=== PATIENT | male | born 1960 | race Caucasian/White ===

== ENCOUNTER 2021-01-26 10:24 | Emergency (ER) | payer MEDICAID ==
[~2021-01-26] VITALS: Ht 180 cm; Wt 131.0 kg
[~2021-01-26 10:24] MED LIST: ACHYD1T PO; ALLO300T2 PO; ASP81CT PO; BUPR-45 PO; BUPR300T43 PO; CETI10TA20 PO; CYAN100053 IJ; FLUT16SP22 NS; FURO40TA PO; GABA-486 PO; HYDR-3816 PO; MELO-195 PO; METO-333 PO; NITR-33 PO; NITR0.4T12 SL; SIMV40TA4 PO
[2021-01-26] MEDS ORDERED: KETOROLAC 30 MG/ML VIAL IVP ONE (10:30)
[2021-01-26] MEDS ORDERED: NS IV 1000 ML 1,000 ML IV ONE (10:30)
--- NOTE | 2021-01-26 10:31 | ED Abdominal Pain ---
General Stated Complaint: KIDNEY PAIN,CT SCAN Source of Information: Patient Exam Limitations: No Limitations History of Present Illness Date Seen by Provider: January 26, 2021 Time Seen by Provider: 10:30 Initial Comments This is a well appearing 60 yo male who presented to the ER with c/o right flank pain that started around 2200 last night. States pain progressively worsened through the morning and at 0330 pain was significantly worse and rated 10/10. States he took his home Hydrocodone 7.5/325mg tab that he takes for his LBP and applied lidocaine cream to his right flank region. Reports this provided mild relief. However, this afternoon his pain progressively worsened and he sought ED evaluation. Reported some nausea associated with pain has no emesis at this time. No fever, chills, cough, shortness of breath, chest pain, vomiting, abdominal pain, or difficulty urinating. Allergies and Home Medications Allergies Coded Allergies: No Known Drug Allergies (Unverified , 09/12/12) Home Medications Allopurinol 300 Mg Tablet, 300 MG PO DAILY, (Reported) Bupropion HCl 300 Mg Tab.er.24h, 300 MG PO DAILY, (Reported) Cetirizine HCl 10 Mg Tablet, 10 MG PO DAILY, (Reported) Cyanocobalamin 1,000 Mcg/Ml Vial, 5,000 MCG IJ MONTHLY, (Reported) Fluticasone Propionate 16 Gm Naspr, 2 SPRAYS NS DAILY, (Reported) Furosemide 40 Mg Tablet, 40 MG PO DAILY, (Reported) Gabapentin 100 Mg Capsule, 100 MG PO TID, (Reported) Hydrocodone Bit/Acetaminophen 1 Tab Tablet, 1 TAB PO Q8H PRN for PAIN, (Reported) Hydrocodone Bit/Acetaminophen 1 Tab Tablet, 1-2 TAB PO Q4H Prescribed by: HOWIE PETERSON on 12/23/14908 Meloxicam 15 Mg Tablet, 15 MG PO DAILY, (Reported) Metoprolol Tartrate 25 Mg Tablet, 25 MG PO BID, (Reported) Nitrofurantoin Macrocrystals 100 Mg Capsule, 1 EACH PO BID Prescribed by: HOWIE PETERSON on 12/23/14908 Simvastatin 40 Mg Tablet, 40 MG PO HS, (Reported) Patient Home Medication List Home Medication List Reviewed: Yes Review of Systems Review of Systems Constitutional: no symptoms reported EENTM: No Symptoms Reported Respiratory: No Symptoms Reported Cardiovascular: No Symptoms Reported Gastrointestinal: See HPI Genitourinary: No Symptoms Reported Musculoskeletal: see HPI Skin: no symptoms reported Psychiatric/Neurological: No Symptoms Reported Endocrine: No Symptoms Reported Hematologic/Lymphatic: No Symptoms Reported Past Ibksjvf-Awcbvk-Smsbhb Hx Immunizations Up To Date Date of Influenza Vaccine: Sep 13, 2012 Past Medical History Chronic Bronchitis, COPD Reproductive Disorders: No Sexually Transmitted Disease: No HIV/AIDS: No Kidney Stones Gall Bladder Disease Loss of Vision: Denies Hearing Impairment: Denies Bipolar Adverse Reaction/Blood Tranf: No Physical Exam Vital Signs Vital Signs - First Documented 01/26/21 10:30 Temp 35.7 Pulse 90 Resp 18 B/P (MAP) 197/106 (136) Pulse Ox 95 Capillary Refill : Height/Weight/BMI Height: 5'11.00" Weight: 288lbs. 0.0oz. 130.904301ux; 40.2 BMI Method:Stated General Appearance: WD/WN, no apparent distress HEENT: PERRL/EOMI, pharynx normal Neck: full range of motion, normal inspection Respiratory: lungs clear, normal breath sounds, no respiratory distress, no accessory muscle use Cardiovascular: regular rate, rhythm, no edema Gastrointestinal: non tender, soft, abnormal bowel sounds (hypoactive ); No distended, No rebound, No tenderness Extremities: non-tender, normal inspection, no pedal edema Back: normal inspection, CVA tenderness (R) Neurologic/Psychiatric: no motor/sensory deficits, alert, normal mood/affect, oriented x 3 Skin: normal color, warm/dry Progress/Results/Core Measures Results/Orders Lab Results Laboratory Tests Test 01/26/21 10:50 01/26/21 11:19 Range/Units Urine Color YELLOW Urine Clarity CLEAR Urine pH 6.0 5-9 Urine Specific [place] >=1.030 1.016-1.022 Urine Protein TRACE H NEGATIVE Urine Glucose (UA) NEGATIVE NEGATIVE Urine Ketones NEGATIVE NEGATIVE Urine Nitrite NEGATIVE NEGATIVE Urine Bilirubin NEGATIVE NEGATIVE Urine Urobilinogen 1.0 < = 1.0 MG/DL Urine Leukocyte Esterase NEGATIVE NEGATIVE Urine RBC (Auto) NEGATIVE NEGATIVE Urine RBC RARE /HPF Urine WBC RARE /HPF Urine Squamous Epithelial Cells RARE /HPF Urine Crystals PRESENT H /LPF Urine Amorphous Sediment RARE RAUL URATES H /LPF Urine Bacteria NEGATIVE /HPF Urine Casts NONE /LPF Urine Mucus NEGATIVE /LPF Urine Culture Indicated NO White Blood Count 9.6 4.3-11.0 10^3/uL Red Blood Count 4.82 4.30-5.52 10^6/uL Hemoglobin 14.4 13.3-17.7 g/dL Hematocrit 45 40-54 % Mean Corpuscular Volume 93 80-99 fL Mean Corpuscular Hemoglobin 30 25-34 pg Mean Corpuscular Hemoglobin Concent 32 32-36 g/dL Red Cell Distribution Width 13.8 10.0-14.5 % Platelet Count 218 130-400 10^3/uL Mean Platelet Volume 9.9 9.0-12.2 fL Immature Granulocyte % (Auto) 0 % Neutrophils (%) (Auto) 85 H 42-75 % Lymphocytes (%) (Auto) 10 L 12-44 % Monocytes (%) (Auto) 3 0-12 % Eosinophils (%) (Auto) 1 0-10 % Basophils (%) (Auto) 0 0-10 % Neutrophils # (Auto) 8.2 H 1.8-7.8 X 10^3 Lymphocytes # (Auto) 1.0 1.0-4.0 X 10^3 Monocytes # (Auto) 0.3 0.0-1.0 X 10^3 Eosinophils # (Auto) 0.1 0.0-0.3 10^3/uL Basophils # (Auto) 0.0 0.0-0.1 10^3/uL Immature Granulocyte # (Auto) 0.0 0.0-0.1 10^3/uL Sodium Level 138 135-145 MMOL/L Potassium Level 4.5 3.6-5.0 MMOL/L Chloride Level 105 98-107 MMOL/L Carbon Dioxide Level 27 21-32 MMOL/L Anion Gap 6 5-14 MMOL/L Blood Urea Nitrogen 17 7-18 MG/DL Creatinine 0.92 0.60-1.30 MG/DL Estimat Glomerular Filtration Rate > 60 BUN/Creatinine Ratio 18 Glucose Level 112 H 70-105 MG/DL Calcium Level 9.3 8.5-10.1 MG/DL Corrected Calcium 9.4 8.5-10.1 MG/DL Total Bilirubin 0.4 0.1-1.0 MG/DL Aspartate Amino Transf (AST/SGOT) 13 5-34 U/L Alanine Aminotransferase (ALT/SGPT) 15 0-55 U/L Alkaline Phosphatase 64 40-136 U/L Total Protein 6.8 6.4-8.2 GM/DL Albumin 3.9 3.2-4.5 GM/DL My Orders Orders - IDANIA SALMERON APRN Ua Culture If Indicated (01/26/21 10:30) Abdomen/Kub 1view (01/26/21 10:30) Ed Iv/Invasive Line Start (01/26/21 10:30) Cbc With Automated Diff (01/26/21 10:30) Comprehensive Metabolic Panel (01/26/21 10:30) Ketorolac Injection (Toradol Injection) (01/26/21 10:30) Ns Iv 1000 Ml (Sodium Chloride 0.9%) (01/26/21 10:30) Ondansetron Injection (Zofran Injectio (01/26/21 10:32) Medications Given in ED Vital Signs/I&O 01/26/21 01/26/21 10:30 12:38 Temp 35.7 Pulse 90 90 Resp 18 18 B/P (MAP) 197/106 (136) 154/88 (136) Pulse Ox 95 95 Progress Progress Note : Progress Note Patient examined and in no acute distress. States pain is similar to prior episode of kidney stone. Initiated renal calculi work-up with basic labs. Orders placed for normal saline 1 L, Zofran 4 mg IV push, Toradol 30 mg IV push. Labs reviewed and unremarkable. Reported mild improvement of symptoms. KUB shows no renal calculi. He does have marked amount of stool in his colon and rectum with no obvious impaction or obstruction. Discussed using MiraLAX at home to help prevent constipation as he states this is a chronic issue due to his use of hydrocodone for his low back pain. Additionally, encouraged him to increase his fluid intake and activity level. If the symptoms persist or worsen he can always return to emergency department for further evaluation or follow-up with his primary care provider. Reviewed discharge plan of care and he is agreeable with plan. Diagnostic Imaging Diagonstic Imaging: Xray Plain Films/CT/US/NM/MRI: abdomen Comments [facility] [place], [place] NAME: WANDA CABALLERO [facility] REC#: [id number] PT STATUS: REG ER : 1960 PHYSICIAN: IDANIA SALMERON APRN ADMIT DATE: 01/26/21/ER Signed Date of Exam:01/26/21 ABDOMEN/KUB 1VIEW INDICATION: Right flank pain, history of nephrolithiasis. COMPARISON: Plain films 12/23/2014. FINDINGS: There were no suspicious radiopaque calcifications. There is perhaps mildly elevated colonic fecal load most notably along the tortuous distal transverse colon and descending colon to the level of the rectum. No findings of focal impaction or bowel obstruction. No pneumatosis or free gas identified. IMPRESSION: No suspicious calcifications. Equivocal findings for elevation of the distal colonic fecal load but no ananth impaction or obstruction. Dictated by: Dictated on workstation # [id number] Dict: 01/26/21 1107 Trans: 01/26/21 1150 [facility] [id number] Interpreted by: MICHELLE BEARDEN Electronically signed by: MICHELLE BEARDEN 01/26/21 1150 Reviewed: Reviewed by Me Departure Impression Primary Impression: Constipation Disposition: 01 HOME, SELF-CARE Condition: Improved Departure-Patient Inst. Decision time for Depature: 11:20 Referrals: COLLINS ADAMS MD (PCP/Family) Primary Care Physician Patient Instructions: Constipation in Adults Add. Discharge Instructions: Plan: 1. Drink plenty of fluids and eat high fiber foods to keep your stools soft. 2. Walk frequently as this will help reduce your risk of developing constipation. 3. You can use Miralax twice a day until you are able to pass your stools. Then you can decrease to daily or every other day to achieve soft stools. 4. Return to ER for any new or worsening symptoms. IDANIA SALMERON ACCOUNTING SOFTWARE SPECIALIST January 26, 2021 10:31
[2021-01-26] MEDS ORDERED: ONDANSETRON 4 MG/2 ML (SDV) Z0FRAN ONE (10:32)
[2021-01-26 10:57] LABS: BILIRUBIN,URINE NEGATIVE (NEGATIVE); CLARITY,URINE CLEAR; COLOR,URINE YELLOW; GLUCOSE, URINE (UA) NEGATIVE (NEGATIVE); KETONES,URINE NEGATIVE (NEGATIVE); LEUKOCYTE ESTERASE ,URINE NEGATIVE (NEGATIVE); NITRITE,URINE NEGATIVE (NEGATIVE); PROTEIN,URINE TRACE (NEGATIVE)
[2021-01-26 11:15] LABS: AMORPHOUS SEDIMENT,UR RARE AMOR URATES /LPF; BACTERIA,URINE NEGATIVE /HPF; RBC,URINE RARE /HPF; SQUAMOUS EPITHELIAL CELL,UR RARE /HPF; WBC,URINE RARE /HPF
--- NOTE | 2021-01-26 11:15 | Diagnostic Imaging Report ---
INDICATION: Right flank pain, history of nephrolithiasis. COMPARISON: Plain films 12/23/2014. FINDINGS: There were no suspicious radiopaque calcifications. There is perhaps mildly elevated colonic fecal load most notably along the tortuous distal transverse colon and descending colon to the level of the rectum. No findings of focal impaction or bowel obstruction. No pneumatosis or free gas identified. IMPRESSION: No suspicious calcifications. Equivocal findings for elevation of the distal colonic fecal load but no ananth impaction or obstruction. Dictated by: Dictated on workstation # [id number]
[2021-01-26 11:42] LABS: BASOPHILS % (AUTO) 0 % (0-10); EOSINOPHILS # (AUTO) 0.1 10^3/uL (0.0-0.3); EOSINOPHILS % (AUTO) 1 % (0-10); HEMATOCRIT 45 % (40-54); HEMOGLOBIN 14.4 g/dL (13.3-17.7); LYMPHOCYTES % (AUTO) 10 % (12-44); MEAN CORPUSCULAR HEMOGLOBIN 30 pg (25-34); MEAN CORPUSCULAR HGB CONC 32 g/dL (32-36); MEAN CORPUSCULAR VOLUME 93 fL (80-99); MEAN PLATELET VOLUME 9.9 fL (9.0-12.2); MONOCYTES # (AUTO) 0.3 X 10^3 (0.0-1.0); MONOCYTES % (AUTO) 3 % (0-12); NEUTROPHILS # (AUTO) 8.2 X 10^3 (1.8-7.8); NEUTROPHILS % (AUTO) 85 % (42-75); PLATELET COUNT 218 10^3/uL (130-400); WHITE BLOOD COUNT 9.6 10^3/uL (4.3-11.0)
[2021-01-26 11:52] LABS: ALBUMIN 3.9 GM/DL (3.2-4.5); CHLORIDE 105 MMOL/L (98-107); POTASSIUM 4.5 MMOL/L (3.6-5.0); SODIUM 138 MMOL/L (135-145)
[2021-01-26 11:54] LABS: CALCIUM 9.3 MG/DL (8.5-10.1)
[2021-01-26 11:55] LABS: GLUCOSE 112 MG/DL (70-105); TOTAL PROTEIN 6.8 GM/DL (6.4-8.2)
[2021-01-26 11:56] LABS: CARBON DIOXIDE 27 MMOL/L (21-32)
[2021-01-26 11:57] LABS: BILIRUBIN,TOTAL 0.4 MG/DL (0.1-1.0)
[2021-01-26 11:58] LABS: ALKALINE PHOSPHATASE 64 U/L (40-136); CREATININE SERUM 0.92 MG/DL (0.60-1.30); GFR ESTIMATED > 60
[2021-01-26 12:00] LABS: BUN/CREATININE RATIO 18
[2021-01-26 12:01] LABS: ALANINE AMINOTRANSFERASE 15 U/L (0-55)
[2021-01-26 12:38] VITALS: BP 154/88
== END 2021-01-26 12:38 | disposition home or self-care (01) ==
LOC: EDUNIT# 10:24 → ER 10:26
DX: K59.00 Constipation, unspecified (principal); J44.9 Chronic obstructive pulmonary disease, unspecified; F31.9 Bipolar disorder, unspecified; Z87.442 Personal history of urinary calculi; Z79.51 Long term (current) use of inhaled steroids; Z79.899 Other long term (current) drug therapy
CPT/HCPCS: 36415; 74018; 80053; 81000; 85025; 96374; 96375

== ENCOUNTER → 2021-07-29 | Outpatient (CLI) | payer MEDICAID ==
--- NOTE | 2021-07-29 14:35 | Diagnostic Imaging Report ---
INDICATION: Right knee pain. TIME OF EXAM: 1:37 p.m. FINDINGS: Three views of the right knee were obtained. There is medial compartmental degenerative change with joint space narrowing and marginal spurring. There is spurring of the tibial spines. There is moderate patellofemoral degenerative change. No fracture, dislocation, or effusion is seen. IMPRESSION: Bicompartmental degenerative change. No acute bony abnormality is detected. Dictated by: Dictated on workstation # [id number]
--- NOTE | 2021-07-29 14:53 | Diagnostic Imaging Report ---
INDICATION: Pelvis and hip pain. FINDINGS: Femoral heads are normal articulation bilaterally. The joint spaces well preserved. SI joints are symmetric with mild sclerosis. Femoral head shows smooth surfaces. Mild sclerotic change along the superior lateral acetabulum. Mild hypertrophic changes noted along the base of the femoral heads laterally. There are no acute abnormalities. 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 Dictated by: Dictated on workstation # [id number]
== END ==
LOC: RAD FS 13:23
PROVIDERS: ATTEND Nurse Practitioner
DX: M17.11 Unilateral primary osteoarthritis, right knee (principal); M19.90 Unspecified osteoarthritis, unspecified site
CPT/HCPCS: 72170; 73562

== ENCOUNTER 2021-11-12 20:42 | Emergency (ER) | payer MEDICAID ==
[~2021-11-12] VITALS: Ht 180 cm; Wt 131.0 kg
[2021-11-12 20:55] LABS: BASOPHILS # (AUTO) 0.1 10^3/uL (0.0-0.1); BASOPHILS % (AUTO) 1 % (0-10); EOSINOPHILS # (AUTO) 0.3 10^3/uL (0.0-0.3); EOSINOPHILS % (AUTO) 3 % (0-10); HEMATOCRIT 45 % (40-54); HEMOGLOBIN 14.9 g/dL (13.3-17.7); LYMPHOCYTES # (AUTO) 2.9 10^3/uL (1.0-4.0); LYMPHOCYTES % (AUTO) 26 % (12-44); MEAN CORPUSCULAR HEMOGLOBIN 30 pg (25-34); MEAN CORPUSCULAR HGB CONC 33 g/dL (32-36); MEAN CORPUSCULAR VOLUME 91 fL (80-99); MEAN PLATELET VOLUME 9.8 fL (9.0-12.2); MONOCYTES # (AUTO) 0.7 10^3/uL (0.0-1.0); MONOCYTES % (AUTO) 6 % (0-12); NEUTROPHILS % (AUTO) 63 % (42-75); PLATELET COUNT 244 10^3/uL (130-400)
[2021-11-12] MEDS ORDERED: KETOROLAC 30 MG/ML VIAL IVP ONE (21:00)
[2021-11-12 21:04] LABS: PROTHROMBIN TIME PATIENT 13.2 SEC (12.2-14.7)
--- NOTE | 2021-11-12 21:04 | ED Chest Pain ---
General Chief Complaint: Chest Wall Stated Complaint: CHEST PAIN Nursing Triage Note: intermittant left sided chest pain x2 days. Source: patient Exam Limitations: no limitations History of Present Illness Date Seen by Provider: Nov 12, 2021 Time Seen by Provider: 21:01 Initial Comments To ER with sharp chest pain left sternal border present for 2 days constantly varying in intensity. Worsened by deep breathing palpation and movement. Does have a history of one coronary stent [place] [address] Molina. He is on a baby aspirin daily. EMS gave nitro paste and the patient had taken 2 sublingual nitro at home prior to their arrival with no improvement in symptoms. Timing/Duration: 1-2 days Severity/Quality: moderate, sharp Location: other Radiation: no radiation Activities at Onset: none ASA po CLIENT ADVISOR: No NTG SL CLIENT ADVISOR: No Associated Symptoms: denies symptoms Allergies and Home Medications Allergies Coded Allergies: No Known Drug Allergies (Unverified , 09/12/12) Patient Home Medication List Home Medication List Reviewed: Yes Allopurinol (Allopurinol) 300 Mg Tablet, 300 MG PO DAILY, (Reported) Entered as Reported by: KAY WRIGHT on 12/19/14 112 Bupropion HCl (Wellbutrin Xl) 300 Mg Tab.er.24h, 300 MG PO DAILY, (Reported) Entered as Reported by: KAY WRIGHT on 12/19/14 112 Cetirizine HCl (Zyrtec) 10 Mg Tablet, 10 MG PO DAILY, (Reported) Entered as Reported by: KAY WRIGHT on 12/19/14 112 Cyanocobalamin (Cyanocobalamin) 1,000 Mcg/Ml Vial, 5,000 MCG IJ MONTHLY, (Reported) Entered as Reported by: KAY WRIGHT on 12/19/14 112 Fluticasone Propionate (Flonase Nasal [place]) 16 Gm Naspr, 2 SPRAYS NS DAILY, (Reported) Entered as Reported by: KAY WRIGHT on 12/19/14 112 Furosemide (Lasix) 40 Mg Tablet, 40 MG PO DAILY, (Reported) Entered as Reported by: KAY WRIGHT on 12/19/14 112 Gabapentin (Gabapentin) 100 Mg Capsule, 100 MG PO TID, (Reported) Entered as Reported by: KAY WRIGHT on 12/19/14 112 Hydrocodone Bit/Acetaminophen (Hydrocodone-Apap 7.5/325 Tab) 1 Tab Tablet, 1 TAB PO Q8H PRN for PAIN, (Reported) Entered as Reported by: KAY WRIGHT on 12/19/14 1125 Hydrocodone Bit/Acetaminophen (Lorcet Plus 10/325 Mg) 1 Tab Tablet, 1-2 TAB PO Q4H Prescribed by: HOWIE PETERSON on 12/23/14 0909 Meloxicam (Meloxicam) 15 Mg Tablet, 15 MG PO DAILY, (Reported) Entered as Reported by: KAY WRIGHT on 12/19/14 1125 Metoprolol Tartrate (Lopressor 25 Mg Tab) 25 Mg Tablet, 25 MG PO BID, (Reported) Entered as Reported by: OPAL MAYNARD on 09/13/122002 Nitrofurantoin Macrocrystals (Macrodantin) 100 Mg Capsule, 1 EACH PO BID Prescribed by: HOWIE PETERSON on 12/23/14 0909 Nitroglycerin (Nitroquick) 0.4 Mg Tab.subl, 0.4 MG SL, (Reported) Entered as Reported by: ARMANDO GARDUNO on 09/12/12 1012 Simvastatin (Simvastatin) 40 Mg Tablet, 40 MG PO HS, (Reported) Entered as Reported by: ARMANDO GARDUNO on 09/12/12 1007 Review of Systems Review of Systems Constitutional: see HPI EENTM: No Symptoms Reported Respiratory: No Symptoms Reported Cardiovascular: See HPI, Chest Pain Gastrointestinal: No Symptoms Reported Genitourinary: No Symptoms Reported Musculoskeletal: no symptoms reported Skin: no symptoms reported Psychiatric/Neurological: No Symptoms Reported Endocrine: No Symptoms Reported Hematologic/Lymphatic: No Symptoms Reported Past Dybqtoh-Mgfkru-Joaeuh Hx Patient Social History Tobacco Use?: Yes Substance use?: No Alcohol Use?: No Pt feels they are or have been: No Immunizations Up To Date First/Initial COVID19 Vaccinat: 08/01 Second COVID19 Vaccination Yury: 08/31 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 Past Medical History Surgery/Hospitalization HX: angina, high cholesterol, renal stones, copd, gall bladder disease Surgeries: Yes (LEFT LOWER LEG AND LEFT ARM SURGERY, LEFT WRIST FATTY TUMOR REM) Respiratory: Yes Chronic Bronchitis, COPD Cardiac: Yes Neurological: Yes Reproductive Disorders: No Sexually Transmitted Disease: No HIV/AIDS: No Kidney Stones Gastrointestinal: Yes Gall Bladder Disease Musculoskeletal: Yes (POLYNEUROPATHY) Endocrine: No Loss of Vision: Denies Hearing Impairment: Denies Cancer: No Psychosocial: Yes Bipolar Integumentary: No Blood Disorders: No Adverse Reaction/Blood Tranf: No Physical Exam Vital Signs Vital Signs - First Documented 11/12/21 20:42 Temp 36.0 Pulse 84 Resp 16 B/P (MAP) 117/69 (85) Pulse Ox 97 O2 Delivery Room Air Capillary Refill : Less Than 3 Seconds Height, Weight, BMI Height: 5'11.00" Weight: 288lbs. 0.0oz. 130.584311vd; 40.00 BMI Method:Stated General Appearance: No Apparent Distress, WD/WN, Other (EKG shows normal sinus rhythm with interventricular conduction delay. Normal intervals no ST segment changes no ectopy.) Respiratory: No Accessory Muscle Use, No Respiratory Distress Cardiovascular: Regular Rate, Rhythm, Normal Peripheral Pulses, Other (Left chest wall is very tender to palpation at the left sternal border fourth fifth and sixth ribs) Gastrointestinal: Normal Bowel Sounds, Non Tender, Soft Neurologic/Psychiatric: Alert, Oriented x3 Skin: Normal Color, Warm/Dry Progress/Results/Core Measures Results/Orders Lab Results Laboratory Tests Test 11/12/21 20:47 Range/Units My Orders Orders - MAHAMED FERMIN APRN Cbc With Automated Diff (11/12/21 20:50) Magnesium (11/12/21 20:50) Chest 1 View, Ap/Pa Only (11/12/21 20:50) Ekg Tracing (11/12/21 20:50) Comprehensive Metabolic Panel (11/12/21 20:50) Myoglobin Serum (11/12/21 20:50) Protime With Inr (11/12/21 20:50) Partial Thromboplastin Time (11/12/21 20:50) O2 (11/12/21 20:50) Monitor-Rhythm Ecg Trace Only (11/12/21 20:50) Lipid Panel (11/13/21 06:00) Ed Iv/Invasive Line Start (11/12/21 20:50) Bnp Iron (11/12/21 20:50) Troponin I Irina (11/12/21 20:50) Ketorolac Injection (Toradol Injection) (11/12/21 21:00) Vital Signs/I&O 11/12/21 20:42 Temp 36.0 Pulse 84 Resp 16 B/P (MAP) 117/69 (85) Pulse Ox 97 O2 Delivery Room Air Blood Pressure Mean: 85 Departure Impression Primary Impression: Costochondritis Disposition: 01 HOME, SELF-CARE Condition: Stable Departure-Patient Inst. Decision time for Depature: 21:04 Referrals: COLLINS ADAMS MD (PCP/Family) Primary Care Physician Patient Instructions: Costochondritis MAHAMED FERMIN APRN Nov 12, 2021 21:04
[2021-11-12 21:05] LABS: ALBUMIN 3.9 GM/DL (3.2-4.5)
[2021-11-12 21:06] LABS: CALCIUM 9.5 MG/DL (8.5-10.1)
[2021-11-12 21:08] LABS: TOTAL PROTEIN 6.9 GM/DL (6.4-8.2)
[2021-11-12 21:09] LABS: BILIRUBIN,TOTAL 0.7 MG/DL (0.1-1.0)
[2021-11-12 21:11] LABS: CREATININE SERUM 0.96 MG/DL (0.60-1.30)
[2021-11-12 21:15] LABS: MAGNESIUM 2.1 MG/DL (1.6-2.4)
--- NOTE | 2021-11-12 21:17 | Diagnostic Imaging Report ---
INDICATION: Chest pain. EXAMINATION: Single AP view of the chest was obtained. COMPARISON: Study of 09/12/2012. FINDINGS: Heart size and pulmonary vascularity are within normal limits. There is air trapping in the upper lobes. There is blunting of the left costophrenic sulcus which may be due to pleural scarring. Otherwise, no acute abnormality is seen. IMPRESSION: No acute abnormality or significant change. Dictated by: Dictated on workstation # [id number]
[2021-11-12 21:37] VITALS: BP 137/86
[2021-11-12] MEDS ORDERED: PROMETHAZINE INJ 25 MG/ML (PHENERGAN) AMP IVP ONE (21:45)
[2021-11-12] MEDS ORDERED: fentaNYL INJ 100 MCG/2 ML AMP IVP PRN (21:45)
== END 2021-11-12 21:41 | disposition home or self-care (01) ==
LOC: EDUNIT# 20:42 → ER 20:44
DX: M94.0 Chondrocostal junction syndrome [Tietze] (principal); Z72.0 Tobacco use
CPT/HCPCS: 36415; 71045; 80053; 83735; 83874; 83880; 84484; 85025; 85610; 85730; 93005; 93041

== ENCOUNTER → 2022-01-07 | Outpatient (CLI) | payer MEDICAID ==
--- NOTE | 2022-01-07 11:43 | Diagnostic Imaging Report ---
INDICATION: Right leg pain. COMPARISON: 07/29/2021. FINDINGS: Three views. There is moderate arthritic change noted throughout the knee. There is narrowing of the medial compartment. There are mild hypertrophic changes. The patellofemoral joint shows good alignment with mild hypertrophic change. There are no fractures demonstrated. No loose bodies are seen. IMPRESSION: Moderate multi-compartmental arthritic changes showing mild progression since previous exam. Dictated by: Dictated on workstation # [id number]
== END ==
LOC: RAD FS 10:53
PROVIDERS: ATTEND Nurse Practitioner
DX: M17.11 Unilateral primary osteoarthritis, right knee (principal)
CPT/HCPCS: 73562

== ENCOUNTER → 2022-03-04 | Outpatient (CLI) | payer MEDICAID | LOC: CARD 10:40 | PROVIDERS: ATTEND Internal Medicine Cardiovascular Disease | DX: I25.10 Atherosclerotic heart disease of native coronary artery without angina pectoris (principal) | CPT/HCPCS: 93306 ==

== ENCOUNTER → 2022-03-08 | Outpatient (CLI) | payer MEDICAID ==
[~2022-03-08] MED LIST changes: +REGADENOSON 0.4 MG/5 ML SYR (LEXISCAN) IV ONE
[2022-03-08] MEDS: CATHETER FLUSH 10 ML SYR IVP PRN (08:15)
[2022-03-08 09:24] VITALS: BP 121/78
--- NOTE | 2022-03-08 23:51 | STRESS TEST ---
DATE OF SERVICE: 03/08/2022 RESTING AND POST REGADENOSON TECHNETIUM-99M TETROFOSMIN SPECT CT IMAGING ORDERING PHYSICIAN: Dr. Molina. PRIMARY PHYSICIAN: CLINICAL DIAGNOSIS: Coronary artery disease. Baseline images were carried out after injection of 10.11 mCi of technetium-99m Tetrofosmin. This was followed by 0.4 mg regadenoson and 30.6 mCi of technetium-99m Tetrofosmin for stress imaging. The electrocardiogram showed sinus rhythm at baseline. The electrocardiogram did not change significantly with regadenoson infusion. The patient tolerated the procedure well. Review of images at rest and following stress does not indicate any significant perfusion defects consistent with myocardial ischemia or infarction. Gated images show normal global left ventricular systolic function with normal regional wall motion. Left ventricular ejection fraction is calculated to be 73%. Left ventricular end-diastolic volume is 64 mL. CONCLUSIONS: 1. No evidence of any significant myocardial ischemia or infarction on this study. 2. Normal regional wall motion. 3. Normal global left ventricular systolic function with a calculated ejection fraction 73%. Job ID: [id number] DocumentID: [id number] Dictated Date: 03/08/2022 17:09:33 Ad Writer Date: 03/08/2022 23:51:22 Dictated By: SALVADOR MOLINA MD, MA, FACP, FACC,
== END ==
LOC: CARD 08:15
PROVIDERS: ATTEND Internal Medicine Cardiovascular Disease
DX: I25.10 Atherosclerotic heart disease of native coronary artery without angina pectoris (principal)
CPT/HCPCS: 78452; 93017; A9502